=== PATIENT | male | born 1955 | race Hispanic/Latino ===

== ENCOUNTER 2021-03-18 08:28 | Outpatient (CLI) | payer OTHER, SELFPAY ==
--- NOTE | 2021-04-08 13:50 | WPDHOMESLEEP ---
Sleep Study - Home Unattended Date of Study: 03/18/21 Ordering Provider: Dillon May MD Interpreting Provider: Neha Pena MD Home Sleep Study Type: Apnea Link Air Height: 1.75 m Weight: 90.718 kg Body Mass Index: 29.5 Neck Circumference (inches): 15.75 [place]: 9 Reason for Sleep Study Hypersomnolence Sleep History Sathya Norton is a 65 year old man with complaints of frequent loud snoring. He rarely has trouble sleeping with a cold. He rarely wakes up gasping for breath at night. He does not awaken from sleep feeling short of breath or awaken at night with heartburn, belching or coughing. He constantly has breathing problems at night reported to him by others. He rarely sweats excessively at night. He does not notice his heart pounding or beating irregularly at night. He does not fall asleep during the day. He occasionally falls asleep involuntarily. He rarely falls asleep while driving. He does not fall asleep during physical effort. He does not have loss of muscle tone with strong emotion. He does not have daytime difficulties due to excessive sleepiness, works as a configuration management manager. He does not feel paralyzed on waking or falling asleep. He does not have vivid dreamlike scenes upon awakening or falling asleep. He does not feel afraid to go to sleep. He rarely has nightmares. He occasionally remembers his dreams. He rarely has racing thoughts. He does not feel sad or depressed. He rarely feels anxious. He rarely has muscular tension and rarely notices parts of his body jerking. He does not kick at night. He occasionally has crawling and aching feelings in his legs and leg pain at night. He denies morning jaw pain, grinding his teeth during sleep, pain during the night that causes awakenings, pain in sierra day, waking up feeling stiff with sore achy muscles or pain in the spine. Normal bedtime is 9:00 p.m. falling asleep within 2 minutes typically awakens 3-4 times at night. He will try to return to sleep and often this occurs within a few minutes. He wakes the morning at 3:50 a.m.. He estimates getting 6 hours of sleep most nights. On the weekends bedtime is the same, 9:00 p.m. and he wakes up at 6:00 a.m. or later. He does not take naps in the afternoon or evening. A short nap is not refreshing. He feels good most mornings. He feels better in the morning compared other times of day PMFSH Past Medical History Medical History Abnormal fasting glucose BMI 32.0-32.9,adult BPH without obstruction/lower urinary tract symptoms Fever blister Hypersomnia Vitamin D deficiency, unspecified Family History Family History Mother Diabetes mellitus, Onset Age: 84 Father Family history of throat cancer, Onset Age: 80 Social History Social History Smoking status: Never smoker Alcohol intake: never Substance use: never Substance use type: does not use Medications Home Medications Medication Instructions Recorded Confirmed Type atorvastatin 80 mg tablet 80 mg PO DAILY #90 tablet 01/06/21 01/06/21 Rx tamsulosin 0.4 mg capsule 0.4 mg PO DAILY #90 cap 01/06/21 01/06/21 Rx hydrochlorothiazide 12.5 mg tablet 12.5 mg PO DAILY #90 tablet 03/12/21 Rx lisinopril 40 mg tablet 40 mg PO DAILY #90 tablet 03/12/21 Rx valacyclovir 1 gram tablet See Rx Instructions PO Q12H #28 03/12/21 Rx tablet Sleep Procedure This test was performed using 4 channel monitoring including respiratory effort channel, snoring channel, heart rate channel, and oxygen saturation channel. This study was scored using CMS guidelines. Sleep Architecture Not applicable for home sleep test. Respiratory Analysis The recording duration 6 hours 58 minutes. Evaluation duration 6 hours 45 minutes. The apnea-hypopnea index is 80. He had 46
[2021-04-08 14:22] VITALS: BMI 29.5
== END 2021-03-19 09:53 | disposition home or self-care (01) ==
LOC: ANHCSM 08:30
PROVIDERS: PCP Family Medicine; Visit Provider Family Medicine
DX: G47.10 Hypersomnia, unspecified (principal); G47.39 Other sleep apnea
CPT/HCPCS: 95806

== ENCOUNTER 2021-05-16 09:41 | Outpatient (CLI) | payer OTHER, SELFPAY ==
--- NOTE | 2021-05-23 18:45 | WPDSLEEPSTUD ---
Sleep Study Date of Study: 05/16/2021 Ordering Provider: Dillon May MD Interpreting Physician: Neha Pena MD Sleep Study Type: CPAP Titration Height: 1.73 m Weight: 90.7 kg Body Mass Index: 30.4 Neck Circumference (inches): 16 [place]: 14 Reason for Sleep Study * 03/18/2021 Home sleep test using ApneaLink with severe mixed sleep apnea with primarily central apneas 60% of the total, 39% obstructive apneas, desaturation to 79%, loud snoring and 16 minutes or 4% spent below 88% saturation. He presents for CPAP titraiton. Sleep History Sathya Norton is a 65 year old man with complaints of frequent loud snoring. He rarely has trouble sleeping with a cold. He rarely wakes up gasping for breath at night. He does not awaken from sleep feeling short of breath or awaken at night with heartburn, belching or coughing. He constantly has breathing problems at night reported to him by others. He rarely sweats excessively at night. He does not notice his heart pounding or beating irregularly at night. He does not fall asleep during the day. He occasionally falls asleep involuntarily. He rarely falls asleep while driving. He does not fall asleep during physical effort. He does not have loss of muscle tone with strong emotion. He does not have daytime difficulties due to excessive sleepiness, works as a canteen manager. He does not feel paralyzed on waking or falling asleep. He does not have vivid dreamlike scenes upon awakening or falling asleep. He does not feel afraid to go to sleep. He rarely has nightmares. He occasionally remembers his dreams. He rarely has racing thoughts. He does not feel sad or depressed. He rarely feels anxious. He rarely has muscular tension and rarely notices parts of his body jerking. He does not kick at night. He occasionally has crawling and aching feelings in his legs and leg pain at night. He denies morning jaw pain, grinding his teeth during sleep, pain during the night that causes awakenings, pain in sierra day, waking up feeling stiff with sore achy muscles or pain in the spine. Normal bedtime is 9:00 p.m. falling asleep within 2 minutes typically awakens 3-4 times at night. He will try to return to sleep and often this occurs within a few minutes. He wakes the morning at 3:50 a.m.. He estimates getting 6 hours of sleep most nights. On the weekends bedtime is the same, 9:00 p.m. and he wakes up at 6:00 a.m. or later. He does not take naps in the afternoon or evening. A short nap is not refreshing. He feels good most mornings. He feels better in the morning compared other times of day PMFSH Past Medical History Medical History Abnormal fasting glucose BMI 32.0-32.9,adult BPH without obstruction/lower urinary tract symptoms Fever blister Hypersomnia Vitamin D deficiency, unspecified Family History Family History Mother Diabetes mellitus, Onset Age: 84 Father Family history of throat cancer, Onset Age: 80 Social History Social History Smoking status: Never smoker Alcohol intake: never Substance use: never Substance use type: does not use Medications Home Medications Medication Instructions Recorded Confirmed Type atorvastatin 80 mg tablet 80 mg PO DAILY #90 tablet 01/06/21 06/05/21 Rx tamsulosin 0.4 mg capsule 0.4 mg PO DAILY #90 cap 01/06/21 06/05/21 Rx hydrochlorothiazide 12.5 mg tablet 12.5 mg PO DAILY #90 tablet 03/12/21 06/05/21 Rx lisinopril 40 mg tablet 40 mg PO DAILY #90 tablet 03/12/21 06/05/21 Rx valacyclovir 1 gram tablet See Rx Instructions PO Q12H #28 03/12/21 06/05/21 Rx tablet Sleep Procedure This test was performed using the [employer] multiple channel system including EOG, EEG, submental EMG, EKG, nasal and oral airflow using thermistors and nasal pressure sens
[2021-06-12 23:03] VITALS: BMI 30.4
== END 2021-05-17 07:33 | disposition home or self-care (01) ==
LOC: ANHCSM 09:43
PROVIDERS: PCP Family Medicine; Visit Provider Family Medicine
DX: G47.33 Obstructive sleep apnea (adult) (pediatric) (principal)
CPT/HCPCS: 95811

== ENCOUNTER 2021-07-01 08:59 | Outpatient (CLI) | payer OTHER, SELFPAY ==
--- NOTE | 2021-07-01 09:09 | ECHO_ITS ---
Patient Info Name: Sathya Norton Age: 65 years : 1955 Gender: Male Ht: 69 in Wt: 200 lbs BSA: 2.12 m2 HR: 61 bpm BP: 116 / 83 mmHg Technical Quality: Good Exam Date: 07/01/2021 9:13 AM Exam Location: [facility] Patient Status: Outpatient Admit Date: 07/01/2021 Staff Ordering Physician: Dillon May MD Milk Sampler: CAMERON Attending Provider: Dillon May MD Referring Physician: Lalo LEY; Exam Type: CA echo doppler color flow Study Info Indications G47.39 - OTHER SLEEP APNEA Complete two-dimensional, color flow and Doppler transthoracic echocardiogram is performed. Summary 1. Complete two-dimensional, color flow and Doppler transthoracic echocardiogram is performed. 2. Left ventricular chamber dimension is normal. 3. Left ventricular systolic function is normal, estimated at 60-65%. 4. There is mildly increased left ventricular wall thickness. 5. The left ventricular diastolic function is normal. 6. There is mild aortic valve sclerosis. 7. No pulmonary hypertension, estimated pulmonary arterial systolic pressure is 17 mmHg. 8. There is trace pulmonic regurgitation. Left Ventricle Tissue doppler is not performed. Left ventricular chamber dimension is normal. Left ventricular systolic function is normal, estimated at 60-65%. There is mildly increased left ventricular wall thickness. The left ventricular diastolic function is normal. Right Ventricle Right ventricular chamber dimension is normal. Right ventricular systolic function is normal. Left Atria Left atrial chamber dimension is normal. Right Atria Right atrial chamber dimension is normal. Aortic Valve The aortic valve is trileaflet. There is mild aortic valve sclerosis. There is no aortic valve stenosis. There is no aortic valve regurgitation. Pulmonic Valve There is trace pulmonic regurgitation. Mitral Valve There is no mitral valve stenosis. There is no mitral valve regurgitation. Tricuspid Valve There is no tricuspid valve regurgitation. No pulmonary hypertension, estimated pulmonary arterial systolic pressure is 17 mmHg. Pericardium/Pleural There is no pericardial effusion. Inferior Vena Cava Normal inferior vena cava with >50% collapse upon inspiration consistent with normal right atrial pressure, 5 mmHg. Aorta The aortic root size at the sinus of Valsalva is normal. Left Ventricular Outflow Tract Name Value Normal LVOT 2D LVOT Diameter 2.7 cm LVOT Doppler LVOT Peak Gradient 7 mmHg LVOT Mean Gradient 4 mmHg LVOT VTI 30 cm LVOT VTI/AV VTI Ratio 1.0 LVOT Stroke Volume 174 ml LVOT CO 25.3 l/min LVOT CI 11.9 l/min/m2 Mitral Valve Name Value Normal MV Doppler -----
== END 2021-07-01 09:00 | disposition home or self-care (01) ==
LOC: ANHCARD 09:00
PROVIDERS: PCP Family Medicine; Visit Provider Family Medicine
DX: G47.39 Other sleep apnea (principal); I37.1 Nonrheumatic pulmonary valve insufficiency; I35.8 Other nonrheumatic aortic valve disorders
CPT/HCPCS: 93306

== ENCOUNTER → 2022-05-19 15:41 | Outpatient (CLI) | payer OTHER, SELFPAY ==
--- NOTE | ~2022-05-19 | XR_ITS ---
XR knee RT min 4V DATE: 05/19/2022 15:59 INDICATION: Lateral right knee pain. No injury. TECHNIQUE: Standing AP, PA views, lateral and sunrise views COMPARISON: None FINDINGS: Minimal periarticular spurring of the patella. Knee joint spaces are relatively preserved. No fracture or dislocation or joint effusion. No periosteal reaction or bone destruction. No radiopaq ue intra-articular loose body or chondrocalcinosis. IMPRESSION: Minimal patellofemoral osteoarthritis Reviewed, dictated and finalized at location B.
== END ==
PROVIDERS: PCP Family Medicine; Visit Provider Nurse Practitioner Family
DX: M25.561 Pain in right knee (principal); M17.11 Unilateral primary osteoarthritis, right knee
CPT/HCPCS: 73564

== ENCOUNTER → 2022-06-24 15:44 | Outpatient (CLI) | payer OTHER, SELFPAY ==
--- NOTE | ~2022-06-24 | XR_ITS ---
EXAMINATION: XR lumbar spine min 4V DATE: 06/24/2022 15:59 INDICATION: Lumbago with sciatica, left-sided. TECHNIQUE: 5 views of lumbar spine were obtained. COMPARISON: None. FINDINGS: There is a gallstone in the gallbladder. Bone alignment is normal. Vertebral body heights a nd intervertebral disc heights are normal. There are endplate osteophytes at most levels. There is mu ltilevel mild facet joint osteoarthritis. There is moderate facet joint osteoarthritis bilaterally at L3-L4. IMPRESSION: 1. Mild lumbar spondylosis. 2. Cholelithiasis. Reviewed, dictated and finalized at location A.
== END ==
PROVIDERS: PCP Family Medicine; Visit Provider Family Medicine
DX: M54.42 Lumbago with sciatica, left side (principal); M47.896 Other spondylosis, lumbar region; K80.20 Calculus of gallbladder without cholecystitis without obstruction
CPT/HCPCS: 72110

== ENCOUNTER 2024-08-11 07:08 | Day surgery (SDC) | payer BC, SELFPAY ==
[2024-08-11 07:23] VITALS: BP 153/92; PULSE 64; RESP 18; TEMP 36.9; O2SAT 100
[2024-08-11] MEDS: LACTATED RINGERS 1,000 ML 150 ML IV CONT (07:42)
--- NOTE | 2024-08-11 07:57 | P.PNAN_ITS ---
Anes - Initial Pre Proc Eval Procedure: Operation Date: 08/11/24 08:15 Proposed Procedures p Colonoscopy - Fabian Davies MD Date/Time: 08/11/24 07:57 Surgeon: Fabian Davies MD Pre Op Diagnosis: Colonoscopy Patient Data Age: 69 Gender: M Height: 1.75 m Weight: 97.7 kg Last Vital Signs Temp 98.5 F 08/11/24 07:23 Pulse 64 08/11/24 07:23 Resp 18 08/11/24 07:23 BP 153/92 H 08/11/24 07:23 Pulse Ox 100 08/11/24 07:23 O2 Del Method Room Air 08/11/24 07:23 Allergies Allergy/AdvReac Type Severity Reaction Status Date / Time No Known Allergies Allergy Verified 08/11/24 07:21 Home Medications Medication Instructions Recorded Confirmed Type atorvastatin 80 mg tablet 80 mg PO DAILY #90 tabs 12/02/23 08/11/24 Rx fluticasone propionate 50 1 spray intranasal BID #16 grams 12/02/23 08/11/24 Rx mcg/actuation nasal spray,suspension (Flonase Allergy Relief) lisinopril 40 mg tablet 40 mg PO DAILY #90 tabs 12/02/23 08/11/24 Rx Patient hx anesthesia problems: none Family hx anesthesia problems: none Results Review: All pre-operative results and documents have been reviewed as part of the pre- operative evaluation. [facility] Past Medical History Medical History (Updated 06/21/24 @ 17:59 by Dillon May MD) Abnormal fasting glucose fasting glucose 106 with hemoglobin A1c 6.3 on 05/30/2021. Glucose 99 on 06/06/2022. Fasting glucose 90 with hemoglobin A1c 6.1 on 04/17/2023. Fasting glucose 95 on 06/17/2024. Actinic keratitis Acute low back pain with left-sided sciatica (~06/20/22) Balanitis (~2022) with painful intercourse BMI 32.0-32.9,adult BMI 33.0-33.9,adult BPH without obstruction/lower urinary tract symptoms Candidiasis under foreskin Fever blister Hypersomnia Obesity (BMI 30.0-34.9) Popping of left ear Retinal tear of left eye (09/19/21) treated with urgent laser surgery 09/19/2021, resolved on 02/02/2024. Right knee pain Sinus congestion Skin lesion Sweating UTI (urinary tract infection) Vitamin D deficiency, unspecified Level normal at 44.1 on 12/28/2020. Family History Family History Mother Diabetes mellitus, Onset Age: 84 Father Family history of throat cancer, Onset Age: 80 Social History Social History Smoking status: Never smoker Alcohol intake: current Drinks per week: 5 Substance use: never Substance use type: does not use Lack of Transportation: No Lack of Food: Never True Current Housing: I Have Housing Concerned About Future Housing: No Difficulty Paying Gas/Electric Bills: No Difficulty Paying for Meds: No Currently Unemployed: No Education: Master's Degree or Higher Difficulty w/ Childcare or Family Care: No Living arrangements: with family Spiritual care concerns: No Anes - Eval Final PreProcedure Day of Procedure 08/11/24 07:57 Patient weight: obese Heart: regular rate and rhythm Lungs: clear to auscultation Airway: Mallampati scale Neurological: alert and oriented Last oral intake: >/= 8 hours ASA classification: III Emergent: no Anesthetic plan: proceed Anesthesia type and monitoring: general GIVS and standard monitoring Results Review: All pre-operative results and documents have been reviewed as part of the pre- operative evaluation. Informed Consent: The patient's anesthetic plan and its attendant risks and benefits were discussed with the patient/family/POA. Questions were solicited and answers provided to the satisfaction of the patient/family/POA.
--- NOTE | 2024-08-11 08:31 | PM.IMHP ---
H&P: HPI History of Present Illness Date/Time: 08/11/24 08:31 Chief Complaint: History of polyps Narrative: The patient has a history of colonic polyps, the last colonoscopy was 5 years ago Review of Systems Review of Systems: All systems reviewed & are unremarkable except as noted in HPI and below PMFSH Past Medical History Medical History (Updated 08/11/24 @ 08:32 by Fabian Davies MD) Abnormal fasting glucose fasting glucose 106 with hemoglobin A1c 6.3 on 05/30/2021. Glucose 99 on 06/06/2022. Fasting glucose 90 with hemoglobin A1c 6.1 on 04/17/2023. Fasting glucose 95 on 06/17/2024. Actinic keratitis Acute low back pain with left-sided sciatica (~06/20/22) Balanitis (~2022) with painful intercourse BMI 32.0-32.9,adult BMI 33.0-33.9,adult BPH without obstruction/lower urinary tract symptoms Candidiasis under foreskin Fever blister Hypersomnia Obesity (BMI 30.0-34.9) Popping of left ear Retinal tear of left eye (09/19/21) treated with urgent laser surgery 09/19/2021, resolved on 02/02/2024. Right knee pain Sinus congestion Skin lesion Sweating UTI (urinary tract infection) Vitamin D deficiency, unspecified Level normal at 44.1 on 12/28/2020. Family History Family History Mother Diabetes mellitus, Onset Age: 84 Father Family history of throat cancer, Onset Age: 80 Social History Social History Smoking status: Never smoker Alcohol intake: current Drinks per week: 5 Substance use: never Substance use type: does not use Lack of Transportation: No Lack of Food: Never True Current Housing: I Have Housing Concerned About Future Housing: No Difficulty Paying Gas/Electric Bills: No Difficulty Paying for Meds: No Currently Unemployed: No Education: Master's Degree or Higher Difficulty w/ Childcare or Family Care: No Living arrangements: with family Spiritual care concerns: No Meds Home Medications and Allergies Home Medications Medication Instructions Recorded Confirmed Type atorvastatin 80 mg tablet 80 mg PO DAILY #90 tabs 12/02/23 08/11/24 Rx fluticasone propionate 50 1 spray intranasal BID #16 grams 12/02/23 08/11/24 Rx mcg/actuation nasal spray,suspension (Flonase Allergy Relief) lisinopril 40 mg tablet 40 mg PO DAILY #90 tabs 12/02/23 08/11/24 Rx Allergies Allergy/AdvReac Type Severity Reaction Status Date / Time No Known Allergies Allergy Verified 08/11/24 07:21 Vital Signs Vital Signs - 24 hr 08/11/24 07:23 Temperature 98.5 F Pulse Rate 64 Respiratory Rate 18 Blood Pressure 153/92 H Pulse Oximetry 100 Oxygen Delivery Room Air Exam Const: General: cooperative and healthy appearing Resp: Effort & Inspection: normal respiratory effort and able to speak in complete sentences Auscultation: clear to auscultation bilaterally Cardio: Rate: regular rate Rhythm: regular rhythm GI: Inspection: normal to inspection GI Palp: No No hepatosplenomegaly present Auscultation: normal bowel sounds Rectal Exam: deferred Skin: General skin exam: normal color Psych: Appearance: grossly normal Mental Status: mental status grossly normal Assessment and Plan Assessment and plan (1) History of colonic polyps: Code(s): Z86.0100 - Personal history of colon polyps, unspecified Status: Acute Assessment and Plan: The patient is deemed a good candidate for the procedure. Consent signed. Will proceed.
[2024-08-11 08:53] VITALS: BP 117/79; PULSE 62; RESP 15; O2SAT 100
[2024-08-11 09:03] VITALS: BP 121/83; PULSE 64; RESP 18; O2SAT 100
[2024-08-11 09:13] VITALS: BP 133/86; PULSE 66; RESP 21; O2SAT 100
== END 2024-08-11 09:21 | disposition home or self-care (01) ==
PROVIDERS: PCP Family Medicine; Visit Provider Internal Medicine Gastroenterology
PROC: 0DJD8ZZ Inspection of Lower Intestinal Tract, Via Natural or Artificial Opening Endoscopic (ICD-10-PCS; CPT 45378; principal; 2024-08-11 08:15)
DX: Z12.11 Encounter for screening for malignant neoplasm of colon (principal); K63.5 Polyp of colon; E66.9 Obesity, unspecified; Z68.31 Body mass index [BMI] 31.0-31.9, adult
CPT/HCPCS: 45385; 88305; J2704; J7120